=== PATIENT | female | born 2000 | race Caucasian/White ===

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

== ENCOUNTER 2022-01-04 12:46 | Outpatient (CLI) | payer BC | END 2022-01-04 12:47 | disposition home or self-care (01) | LOC: SCSRAD 12:46 | PROVIDERS: ATTEND Family Medicine | DX: H74.91 Unspecified disorder of right middle ear and mastoid (principal) | CPT/HCPCS: 70260 ==